=== PATIENT | male | born 1955 | race Caucasian/White ===

== ENCOUNTER 2018-05-03 05:34 | Day surgery (SDC) | payer OTHER ==
[~2018-05-03 05:34] MED LIST: Buffered Lidocaine 0.9% SYRIN* 5 ML/SYR SYRINGE INTRADERM ONE
[2018-05-03] MEDS ORDERED: ceFAZolin 2 GM PREMIX in ORs 2 GM/50 ML BAG IVPB ONE (06:04)
[2018-05-03] MEDS ORDERED: Lidocaine 1% INJ* 10 MG/ML 30 ML SDV ONE (06:51)
[2018-05-03] MEDS ORDERED: Bacitracin OINTMENT* 0.5% 0.5 oz TUBE ONE (06:51)
[2018-05-03] MEDS ORDERED: Bupivacaine 0.5% W/EPI SDV* 30 ML VIAL ONE (06:51)
[2018-05-03] MEDS ORDERED: Midazolam* 1 MG/ML 2 ML VIAL (2 MG) ONE ×2 (07:32→07:49)
[2018-05-03] MEDS ORDERED: Lidocaine 2% PF * 5 ML VIAL ONE (07:32)
[2018-05-03] MEDS ORDERED: Propofol* 10 MG/ML 20 ML BTL ONE (07:32)
[2018-05-03] MEDS ORDERED: fentaNYL* 50 MCG/ML 2 ML VIAL (100 MCG VIAL) ONE ×2 (07:32→08:05)
[2018-05-03] MEDS ORDERED: Labetalol IV* 5 MG/ML 20 ML VIAL ONE (07:36)
[2018-05-03] MEDS ORDERED: Naloxone* 0.4 MG/ML 1 ML VIAL IV PRN (08:15)
--- NOTE | 2018-05-03 08:40 | BRIEFOPN ---
Brief Operative Note - Surgery Procedures: Pre-OP Diagnoses: umbilical hernia Post-op Diagnosis: same Procedure: open umbilical hernia repair with mesh Surgeon: Henry Asst: none Anethesia: Local MAC EBL: minimal IVF: 800cc LR Specimen: hernia sac Drains: none
[2018-05-03 09:40] VITALS: BP 161/80
--- NOTE | 2018-05-03 21:27 | OP ---
CC: Dr. Guy Cuenca * DATE OF PROCEDURE: 05/03/18 - [facility] DATE OF : 53 SURGEON: Dr. Figueroa. NURSE TECH: None. ANESTHESIA: Local MAC. PRE-OP DIAGNOSIS: Umbilical hernia. POST-OP DIAGNOSIS: Umbilical hernia. OPERATIVE PROCEDURE: Umbilical hernia repair. ESTIMATED BLOOD LOSS: Minimal. IV FLUIDS: Minimal crystalloid fluids given. SPECIMEN: Hernia sac. DRAINS: None. DESCRIPTION OF PROCEDURE: Mr. Hernandez was identified in the preoperative area. He was marked. Brought to the operating room and placed on the operating table in supine position. Preoperative antibiotics were given. Sequential devices were placed on bilateral lower extremities. Gentle sedation was given. The patient's abdominal hair was clipped and the abdomen was prepped and draped in a standard surgical fashion. A time-out was performed. A up-and-down incision was made over the umbilical skin, this was distended and thinned out. We quickly entered into hernia sac, fluid exited the abdomen, this was suctioned off. We extended our incision superior and inferiorly and identified the omentum on the inside of the sac. This was a lysed off of the peritoneal sac and once this was performed, we were able to reduce the omental fat back into the abdomen through a 1-cm defect. We did have to push a fair amount to reduce this appropriately. Next attention was turned towards the hernia sac, which was freed up from the adjacent tissues and then ligated. We then sutured it close with a 2-0 Vicryl stitch. Next, we freshened up the edges of the fascia inferiorly and superiorly and closed it primarily with interrupted #1 Prolene sutures. Wound was irrigated. Hemostasis achieved. There was a significant amount of redundant umbilical skin, this was excised with Tucker scissors. We then reapproximated the skin edges with 3-0 Vicryl sutures and did tack one of the stitched down into the anterior abdominal wall and then closed the skin with 4-0 chromic sutures in a simple fashion. Sterile dressing was applied. The patient tolerated the procedure well, was woken up in the OR and transferred to the PACU in stable condition. [id number]/[facility] #: [id number] SERGIO
== END 2018-05-03 09:58 | disposition home or self-care (01) ==
LOC: OR 05:34
PROVIDERS: ATTEND Surgery
DX: K42.0 Umbilical hernia with obstruction, without gangrene (principal); Z87.891 Personal history of nicotine dependence
CPT/HCPCS: 88302; A9270-GY; J0690; J2250; J2704; J3010